=== PATIENT | male | born 1940 | race Caucasian/White ===

== ENCOUNTER → 2017-06-06 | Outpatient (CLI) | payer OTHER ==
[~2017-06-06] MED LIST: ASPI650T PO; HYDR-3237 PO; HYDR500C3 PO; LISI1TAB3 PO; METH500T7 PO; SIMV10TA3 PO
== END | disposition home or self-care (01) ==
LOC: STAR 09:38
PROVIDERS: ATTEND Internal Medicine Geriatric Medicine
DX: Z01.818 Encounter for other preprocedural examination (principal); K86.89 Other specified diseases of pancreas
CPT/HCPCS: 93005

== ENCOUNTER 2017-06-11 10:17 | Day surgery (SDC) | payer OTHER ==
[~2017-06-11] VITALS: Ht 162.6 cm; Wt 63.0 kg
[~2017-06-11 10:17] MED LIST changes: +FENTANYL PF 100 MCG/2ML IV PRN; +HYDROcodone/APAP 7.5-325MG/15ML UDC PO PRN; +HYDROmorphone 1 MG/ML, 1ML IV PRN; +LABETALOL 5MG/ML, 20ML IV PRN; +MEPERIDINE/PF 25MG/0.5ML IVPush PRN; +METOCLOPRAMIDE 5 MG/ML, 2ML IV PRN; +MIDAZOLAM 1 MG/ML, 2ML IV PRN; +ONDANSETRON 2MG/ML, 2ML IVPush PRN; +morphine SULFATE 10 MG/ML, 1ML IV PRN
[2017-06-11] MEDS ORDERED: LACTATED RINGERS 1,000 ML IV SCH ×2 (10:30→11:33)
[2017-06-11] MEDS ORDERED: FENTANYL PF 100 MCG/2ML ONE ×2 (11:00)
[2017-06-11] MEDS ORDERED: MIDAZOLAM 1 MG/ML, 2ML ONE (11:00)
[2017-06-11] MEDS ORDERED: CIPROFLOXACIN/PMX 400MG/200ML 200 ML ONE (12:17)
[2017-06-11] MEDS ORDERED: METRONIDAZOLE PMX 500MG/100ML 100 ML ONE (12:18)
[2017-06-11 13:07] LABS: ENDOSCOPIC ULTRASOUND RECEIVED; ENDOSCOPY QUESTIONNAIRE RECEIVED
== END 2017-06-11 14:45 ==
LOC: EDSEX → OUT 10:17
PROVIDERS: ATTEND Internal Medicine Geriatric Medicine
DX: K86.2 Cyst of pancreas (principal); I10 Essential (primary) hypertension; E78.5 Hyperlipidemia, unspecified
CPT/HCPCS: 43242; J0744; J2250; J3010; J7120